=== PATIENT | female | born 1985 | race American Indian/Alaskan Native ===

== ENCOUNTER 2017-06-22 14:59 | Emergency (ER) | payer OTHER ==
--- NOTE | 2017-06-22 16:32 | XRay Report ---
RIGHT KNEE: History: Pain after trauma. The bony architecture is intact without evidence of fracture or dislocation. No significant soft tissue abnormality is seen. IMPRESSION: Normal right knee.
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
[2017-06-22] MEDS: MOTRIN PO ONE (17:57)
[2017-06-22 18:00] VITALS: BP 114/90
== END 2017-06-22 17:59 | disposition home or self-care (01) ==
LOC: ED 14:59
DX: S86.911A Strain of unspecified muscle(s) and tendon(s) at lower leg level, right leg, initial encounter (principal); V43.52XA Car driver injured in collision with other type car in traffic accident, initial encounter; Y93.9 Activity, unspecified; Y99.9 Unspecified external cause status; Y92.410 Unspecified street and highway as the place of occurrence of the external cause